=== PATIENT | male | born 1990 | race Caucasian/White ===

== ENCOUNTER 2019-10-18 13:12 | Emergency (ER) | payer OTHER ==
[~2019-10-18] VITALS: Ht 172.7 cm; Wt 84.8 kg
[2019-10-18 13:44] VITALS: Ht 172.7 cm; Wt 84.8 kg
[2019-10-18 15:22] VITALS: BP 130/74
== END 2019-10-18 15:22 | disposition home or self-care (01) ==
LOC: ED 13:12
DX: S43.101A Unspecified dislocation of right acromioclavicular joint, initial encounter (principal); S93.492A Sprain of other ligament of left ankle, initial encounter; Z98.890 Other specified postprocedural states; V86.56XA Driver of dirt bike or motor/cross bike injured in nontraffic accident, initial encounter; Y93.55 Activity, bike riding; Y92.89 Other specified places as the place of occurrence of the external cause; Y99.8 Other external cause status
CPT/HCPCS: J1885; Q0092